=== PATIENT | male | born 1990 | race Caucasian/White ===

== ENCOUNTER 2023-06-20 15:18 | Emergency (ER) | payer BC, SELFPAY ==
[2023-06-20 15:23] VITALS: BP 150/96; PULSE 81; RESP 16; TEMP 36.9; O2SAT 99; BMI 35.7
--- NOTE | 2023-06-20 15:34 | PC.NURSE ---
visual acuity Lt 20/25, Rt 20/20, both 20/20
--- NOTE | 2023-06-20 16:01 | ED_ITS ---
HPI - Eye Problem General Chief complaint: Eye Problems Stated complaint: EYE INJURY Time Seen by Provider: 06/20/23 15:31 Source: patient Mode of arrival: walk-in History of Present Illness HPI Narrative: 33-year-old male presents to the emergency department for foreign body in his left eye. He was weed whacking yesterday and felt something go into his eye. He could see it in the mirror with a magnifying glass and he tried irrigating it out but was unsuccessful. No symptoms in his right eye. No purulent drainage. He doesn't complain of pain, just a foreign body sensation. Related Data Previous Rx's Medication Instructions Recorded sulfacetamide sodium 10 % eye drops 2 drp ophthalmic (eye) Q4H #15 mL 06/20/23 Allergies Allergy/AdvReac Type Severity Reaction Status Date / Time No Known Drug Allergies Allergy Verified 06/20/23 15:26 Review of Systems ROS Narrative A ten point review of systems is negative except as noted above. Exam Narrative Exam Narrative: Nurses note and vital signs reviewed and patient is not hypoxic. General: The patient appears well and in no apparent distress. Patient is rest ing comfortably on cart. Skin: Warm, dry, no pallor noted. There is no rash noted. Head: Normocephalic, atraumatic Eye: right eye appears normal. The left is minimally injected. Very small foreign body noted at the 3 o'clock position of the left cornea. Globe intact. No other foreign body noted. Ears, Nose, Mouth, and Throat: oral mucosa is moist. Nares patent. Mouth without vesicles. Ear canals patent. Tm's without Erythema Cardiovascular: Regular Rate and Rhythm Respiratory: Patient is in no distress, no accessory muscle use, lungs are clear to auscultation, no wheezing, rales or rhonchi Back: non-tender GI: nontender Musculoskeletal: no joint swelling Neurological: A&O, normal speech Psychiatric: Cooperative Constitutional Vital Signs, click to edit/add: Last Vital Signs Temp 98.5 F 06/20/23 15:23 Pulse 81 06/20/23 15:23 Resp 16 06/20/23 15:23 BP 150/96 H 06/20/23 15:23 Pulse Ox 99 06/20/23 15:23 O2 Del Method Room Air 06/20/23 15:23 Course Vital Signs Vital signs: Vital Signs Temperature 98.5 F 06/20/23 15:23 Pulse Rate 81 06/20/23 15:23 Respiratory Rate 16 06/20/23 15:23 Blood Pressure 150/96 H 06/20/23 15:23 Pulse Oximetry 99 06/20/23 15:23 Oxygen Delivery Method Room Air 06/20/23 15:23 Temperature 98.5 F 06/20/23 15:23 Pulse Rate 81 06/20/23 15:23 Respiratory Rate 16 06/20/23 15:23 Blood Pressure 150/96 H 06/20/23 15:23 Pulse Oximetry 99 06/20/23 15:23 Oxygen Delivery Method Room Air 06/20/23 15:23 MDM - Eye Problem MDM Narrative Medical decision making narrative: the corneal foreign body has been removed but he has a residual rust ring. Tetanus is updated and he was placed on Bleph-10 and advised follow-up with ophthalmology. Treatment diagnosis and follow-up were discussed with the patient. Differential Diagnosis Differential diagnosis: Likely corneal abrasion, conjunctivitis, ruptured globe and other (corneal foreign body) Discharge Plan Discharge Chief Complaint: Eye Problems Clinical Impression: Acute foreign body of left cornea, Corneal rust ring of left eye Patient Disposition: Home, Self-Care Time of Disposition Decision: 15:59 Condition: Good Mode of Transportation: Private Vehicle Prescriptions / Home Meds: New sulfacetamide sodium 10 % drops 2 drp ophthalmic (eye) Q4H Qty: 15 0RF Instructions: Eye Foreign Body (ED) Additional Instructions: follow-up with ophthalmology regarding the rust ring Stand Alone Forms: Portal Instructions Referrals: Danial Spain MD [Primary Care Provider] - 1 week Procedures ED Procedure Instructions Procedures Procedures: the following procedure was performed by me. Tetracaine applied to the left eye and using slit lamp and tuberculin syringe the corneal foreign body was removed. It broke up upon removal and his eye was irrigated. There is a residual rust ring but no residual foreign body. Globe intact. He tolerated the procedure well.
[2023-06-20] MEDS: TETRACAINE HCL 0.5% OP SOL 80 DROP/4 ML BOTTLE OP (16:02)
[2023-06-20] MEDS: ADACEL DIPH,PERTUSS(ACELL),TET VAC/PF 0.5 ML ADULT SYRINGE IM (16:17)
== END 2023-06-20 16:21 | disposition home or self-care (01) ==
PROVIDERS: Emergency Provider Emergency Medicine; PCP Family Medicine
DX: T15.02XA Foreign body in cornea, left eye, initial encounter (principal); Z23 Encounter for immunization
CPT/HCPCS: 90471; 90715; 99283

== ENCOUNTER 2024-02-09 06:48 | Outpatient (OUT) | payer BC, SELFPAY ==
[2024-02-09 07:40] LABS: Basophils Percent Auto 0.4 % (0.2-2.0); Eosinophils Absolute Auto 0.1 10^3/uL (0.0-0.7); Eosinophils Percent Auto 0.8 % (0.9-7.0); Hematocrit 44.9 % (42.0-54.0); Hemoglobin 15.3 g/dL (14.0-18.0); Immature Granulocytes Abs Auto 0.03 10^3/uL (0.00-0.03); Immature Granulocytes Pct Auto 0.3 % (0.0-0.5); Lymphocytes Percent Auto 19.9 % (20.5-60.0); Mean Corpuscular HGB Conc 34.1 g/dL (29.9-35.2); Mean Corpuscular Hemoglobin 30.7 pg (25.9-34.0); Mean Platelet Volume 9.5 fL (9.5-13.5); Monocytes Percent Auto 9.8 % (1.7-12.0); Neutrophils Absolute Auto 7.1 10^3/uL (1.4-6.5); Neutrophils Percent Auto 68.8 % (43.0-75.0); Platelet Count 281 10^3/uL (150-450); Red Blood Count 4.99 10^6/uL (4.70-6.10); Red Cell Distribution Width 11.9 % (11.0-15.0); White Blood Count 10.2 10^3/uL (4.0-11.0)
[2024-02-09 10:56] LABS: Alanine Aminotransferase 34 U/L (16-63); Albumin Globulin Ratio 1.2; Albumin Level 3.9 g/dL (3.4-5.0); Alkaline Phosphatase 64 U/L (46-116); Anion Gap 13.3; Aspartate Amino Transferase 22 U/L (15-37); Bilirubin Total 0.4 mg/dL (0.2-1.0); Calcium 9.5 mg/dL (8.5-10.1); Chloride 104 mmol/L (98-107); Cholesterol 174 mg/dL (<=200); Estimated GFR (African America >60 (>=60); Estimated GFR (Non-African Ame >60 (>=60); Globulin 3.2 g/dL; Glucose 99 mg/dL (74-106); HDL Cholesterol 43 mg/dL (40-60); Potassium 4.3 mmol/L (3.5-5.1); Sodium 140 mmol/L (136-145); Total Protein 7.1 g/dL (6.4-8.2); Triglycerides 168 mg/dL (<=150); VLDL CHOLESTEROL 33.6 mg/dL
== END 2024-02-09 06:49 | disposition home or self-care (01) ==
LOC: LAB 06:49
PROVIDERS: PCP Family Medicine; Visit Provider Nurse Practitioner Family
DX: Z00.00 Encounter for general adult medical examination without abnormal findings (principal)
CPT/HCPCS: 36415; 80053; 80061; 85025

== ENCOUNTER 2024-11-15 11:48 | Outpatient (OUT) | payer OTHER, SELFPAY ==
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
== END 2024-11-15 11:49 | disposition home or self-care (01) ==
LOC: RAD 11:50
PROVIDERS: PCP Nurse Practitioner Family; Visit Provider Nurse Practitioner Family
DX: M25.552 Pain in left hip (principal); V89.2XXA Person injured in unspecified motor-vehicle accident, traffic, initial encounter; M79.609 Pain in unspecified limb; R20.2 Paresthesia of skin
CPT/HCPCS: 73502

== ENCOUNTER 2025-02-25 01:00 | Emergency (ER) | payer BC, SELFPAY ==
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
[2025-02-25 01:13] VITALS: BP 176/93; PULSE 78; TEMP 36.6; O2SAT 99; BMI 34.9
--- NOTE | 2025-02-25 01:21 | ED_ITS ---
HPI - Skin/Abscess/Foreign Bdy General Chief complaint: Skin/Abscess/Foreign Body Stated complaint: FEELS LIKE SOMETHING IS STUCK IN HIS RECTUM Time Seen by Provider: 02/25/25 01:16 Source: patient Mode of arrival: walk-in Limitations: no limitations History of Present Illness HPI narrative: . presents complaining of anal pain since yesterday. No known hemorrhoids. No abdominal pain or fever. No injury Related Data Previous Rx's ?Medication ?Instructions ?Recorded sulfacetamide sodium 10 % eye drops 2 drp ophthalmic ( eye) Q4H #15 mL 06/20/23 Allergies Allergy/AdvReac Type Severity Reaction Status Date / Time No Known Drug Allergies Allergy Verified 02/25/25 01:12 Review of Systems ROS Status of ROS 10 or more systems reviewed and unremark able except as noted in history and below PFSH PFSH Social History Little interest or pleasure in doing things: not at all Feeling down, depressed, or hopeless: not at all Exam Constitutional Vital Signs, click to edit/add: Last Vital Signs Temp 97.8 F 02/25/25 01:13 Pulse 78 02/25/25 01:13 Resp 19 02/25/25 01:13 BP 176/93 H 02/25/25 01:13 Pulse Ox 99 02/25/25 01:13 O2 Del Method Room Air 02/25/25 01:13 Common normals: no apparent distress, average body habitus, oriented x3, no limitations, healthy appearing, alert and well nourished [facility] Common normals: normocephalic and head/scalp atraumatic Respiratory Common normals: normal respiratory effort, no retractions, no use of accessory muscles and clear to auscultation bilaterally Cardio Common normals: regular rate, regular rhythm, S1 normal heart sound and S2 normal heart sound GI Common normals: Normal to inspection, nondistended, normoactive bowel sounds present, soft to palpation and non-tender Other: anal verge normal appearance. Does have tenderness on digital exam but no obvious abscess or hemorrhoids Extremity Common normals: normal to inspection and full ROM Neuro Common normals: oriented x3, CN's II-XII intact bilaterally, moves all extremities and no focal motor deficits Psych Appearance: grossly normal Course Vital Signs Vital signs: Vital Signs Temperature 97.8 F 02/25/25 01:13 Pulse Rate 78 02/25/25 01:13 Respiratory Rate 19 02/25/25 01:13 Blood Pressure 176/93 H 02/25/25 01:13 Pulse Oximetry 99 02/25/25 01:13 Oxygen Delivery Method Room Air 02/25/25 01:13 Temperature 97.8 F 02/25/25 01:13 Pulse Rate 78 02/25/25 01:13 Respiratory Rate 19 02/25/25 01:13 Blood Pressure 176/93 H 02/25/25 01:13 Pulse Oximetry 99 02/25/25 01:13 Oxygen Delivery Method Room Air 02/25/25 01:13 MDM - Skin/Abscess/Foreign Bdy MDM Narrative Medical decision making narrative: presents complaining of anal pain. Inspection without obvious abnormality. No definite ext. hemorrhoids and digital exam without obvious internal hemorrhoids or fluctuance abscess. Site tender. No swelling. CT and labs unremarkable. Patient advised he may have internal hemorrhoids still or possible an early infection. Plan to cover for both for now. Recommend sitz bath or bath tub along with hemorrhoidal cream and Augmentin. Close followup is important Lab Data Labs: Lab Results 02/25/25 Range/Units 01:30 WBC 11.5 H (4.0-11.0) 10^3/uL RBC 4.93 (4.70-6.10) 10^6/uL Hgb 15.6 (14.0-18.0) g/dL Hct 44.7 (42.0-54.0) % MCV 90.7 (80.0-94.0) fL MCH 31.6 (25.9-34.0) pg MCHC 34.9 (29.9-35.2) g/dL RDW 12.9 (11.0-15.0) % Plt Count 280 (150-450) 10^3/uL MPV 9.3 L (9.5-13.5) fL Neut % (Auto) 64.3 (43.0-75.0) % Lymph % (Auto) 23.8 (20.5-60.0) % [place] % (Auto) 10.1 (1.7-12.0) % Eos % (Auto) 1.4 (0.9-7.0) % Baso % (Auto) 0.3 (0.2-2.0) % Neut # (Auto) 7.4 H (1.4-6.5) 10^3/uL Lymph # (Auto) 2.7 (1.2-3.8) 10^3/uL [place] # (Auto) 1.2 H (0.3-0.8) 10^3/uL Eos # (Auto) 0.2 (0.0-0.7) 10^3/uL Baso # (Auto) 0.0 (0.0-0.1) 10^3/uL Abs Immat Gran (auto) 0.01 (0.00-0.03) 10^3/uL Imm/Tot Granulo (auto) 0.1 (0.0-0.5) % Sodium 142 (136-145) mmol/L Potassium 3.8 (3.5-5.1) mmol/L Chloride 106 (98-107) mmol/L Carbon Dioxide 25.6 (21.0-32.0) mmol/L Anion Gap 14.2 BUN 18.0 (7.0-18.0) mg/dL Creatinine 0.56 L (0.70-1.30) mg/dL Est GFR ( Amer) >60 (>=60 mL/min/1.73m^2) Est GFR (Non-Af Amer) >60 (>=60 mL/min/1.73m^2) BUN/Creatinine Ratio 32.1 Glucose 105 (74-106) mg/dL Calcium 8.8 (8.5-10.1) mg/dL C-Reactive Protein 2.45 H (<=0.50) mg/dL Discharge Plan Discharge Chief Complaint: Skin/Abscess/Foreign Body Clinical Impression: Anal or rectal pain Patient Disposition: Home, Self-Care Prescriptions / Home Meds: No Action sulfacetamide sodium 10 % drops 2 drp ophthalmic (eye) Q4H Qty: 15 0RF Print Language: Mongolian Instructions: Rectal Pain (ED) Additional Instructions: use motrin for pain and follow up with your doctor within next couple of days for recheck. also use hemorrhoidal cream and sitz bath Referrals: ERNA WALKER [Primary Care Provider, Unknown] - 1 week Discharge Date/Time: 02/25/25 05:43
--- NOTE | 2025-02-25 01:23 | PC.NURSE ---
Patient with rectal pain that he believes is from a bristle from a wire grill brush. He ate burgers off the grill that had just been cleaned with a wire brush and had this sudden onset rectal pain that he does not know what else could be causing it.
[2025-02-25 01:56] LABS: Basophils Percent Auto 0.3 % (0.2-2.0); Eosinophils Percent Auto 1.4 % (0.9-7.0); Hematocrit 44.7 % (42.0-54.0); Hemoglobin 15.6 g/dL (14.0-18.0); Immature Granulocytes Pct Auto 0.1 % (0.0-0.5); Lymphocytes Percent Auto 23.8 % (20.5-60.0); Mean Corpuscular HGB Conc 34.9 g/dL (29.9-35.2); Mean Corpuscular Hemoglobin 31.6 pg (25.9-34.0); Mean Corpuscular Volume 90.7 fL (80.0-94.0); Mean Platelet Volume 9.3 fL (9.5-13.5); Monocytes Percent Auto 10.1 % (1.7-12.0); Neutrophils Absolute Auto 7.4 10^3/uL (1.4-6.5); Neutrophils Percent Auto 64.3 % (43.0-75.0); Platelet Count 280 10^3/uL (150-450); Red Blood Count 4.93 10^6/uL (4.70-6.10); Red Cell Distribution Width 12.9 % (11.0-15.0); White Blood Count 11.5 10^3/uL (4.0-11.0)
[2025-02-25 01:57] LABS: Eosinophils Absolute Auto 0.2 10^3/uL (0.0-0.7); Immature Granulocytes Abs Auto 0.01 10^3/uL (0.00-0.03); Lymphocytes Absolute Auto 2.7 10^3/uL (1.2-3.8); Monocytes Absolute Auto 1.2 10^3/uL (0.3-0.8)
[2025-02-25 02:06] LABS: Anion Gap 14.2; BUN Creatinine Ratio 32.1; C Reactive Protein 2.45 mg/dL (<=0.50); Calcium 8.8 mg/dL (8.5-10.1); Carbon Dioxide 25.6 mmol/L (21.0-32.0); Chloride 106 mmol/L (98-107); Estimated GFR (African America >60 (>=60 mL/min/1.73m^2); Estimated GFR (Non-African Ame >60 (>=60 mL/min/1.73m^2); Glucose 105 mg/dL (74-106); Potassium 3.8 mmol/L (3.5-5.1); Sodium 142 mmol/L (136-145)
[2025-02-25] MEDS: KETOROLAC TROMETHAMINE 30 MG/ML VIAL IVP (05:31)
[2025-02-25] MEDS: AMOXICILLIN/POT CLAV 875-125 MG TABLET 1 TAB PO (05:31)
== END 2025-02-25 05:43 | disposition home or self-care (01) ==
PROVIDERS: Emergency Provider Internal Medicine; PCP Nurse Practitioner Family
DX: K62.89 Other specified diseases of anus and rectum (principal)
CPT/HCPCS: 36415; 74177; 80048; 85025; 86140; 96374; 99285; J1885; Q9967

== ENCOUNTER 2025-02-26 16:13 | Outpatient (OUT) | payer BC, SELFPAY ==
--- NOTE | 2025-02-26 16:26 | XR_ITS ---
The [address] [address] Patient Name: ANDREA WHITE MRN: [id number] date: 1990 Sex: M Assigned Patient Location: [facility] Current Patient Location: Accession/Order Number: [id number] Exam Date: 02/27/2025 08:49 Report Date: 02/27/2025 08:51 At the request of: ERNA WALKER Procedure: XR sacrum coccyx min 2V SACRUM AND COCCYX -3 views CLINICAL HISTORY: Tailbone pain after riding a tractor and hitting hole COMPARISON: CT 02/25/2025 Lateral as well as AP views in neutral and downward projection were obtained. No fracture or displacement is identified. The SI joints and sacral foramen appear intact. No soft tissue abnormalities are seen. XR/XR sacrum coccyx min 2V IMPRESSION: NO ACUTE BONY INJURY. Impression dictated by: Carolina Carrasco M.D. 02/27/2025 8:51 AM Dictation Location: [place] [address] Electronically authenticated by: [id number] Date: 02/27/2025 08:51
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
== END 2025-02-26 16:14 | disposition home or self-care (01) ==
PROVIDERS: PCP Nurse Practitioner Family; Visit Provider Nurse Practitioner Family
DX: M53.3 Sacrococcygeal disorders, not elsewhere classified (principal)
CPT/HCPCS: 72220